=== PATIENT | male | born 1960 | race Caucasian/White ===

== ENCOUNTER 2018-11-18 15:20 | Emergency (ER) | payer OTHER ==
[2018-11-18 15:58] VITALS: BP 137/76
--- NOTE | 2018-11-18 16:29 | UC ---
Hand/Wrist HPI - HPI Summary HPI Summary: 58-year-old male comes in with a chief complaint of a injury to the palm of the left hand at work just prior to arrival. Patient was using a pressure sprayer to clean the floor. When he picked up the pressure [place] did not realize was still pressure behind it fired off water into the palm of his left hand. Initially the pain was quite severe. Pain has decreased quite a bit since that time. He's been having some tingling into the third and fourth fingers. It's also improving. Is full range of motion of the hand. Movement increases the pain. Patient does have patient has a 6 mm laceration on the palm of the left hand. Bleeding was controlled with direct pressure. Patient reports he had a tetanus shot in the last 1-2 years. - History Of Current Complaint Chief Complaint: UCLaceration Stated Complaint: W/C - LEFT HAND INJURY Time Seen by Provider: 11/18/18 15:57 Pain Intensity: 3 - Allergies/Home Medications Allergies/Adverse Reactions: Allergies Allergy/AdvReac Type Severity Reaction Status Date / Time No Known Allergies Allergy Verified 11/18/18 15:58 PMH/Surg Hx/FS Hx/Imm Hx Previously Healthy: Yes - Surgical History Surgical History: None - Family History Known Family History: Positive: Non-Contributory - Social History Alcohol Use: Weekly Substance Use Type: None Smoking Status (MU): Heavy Every Day Tobacco Smoker Review of Systems All Other Systems Reviewed And Are Negative: Yes Constitutional: Positive: Negative Skin: Positive: Other - see hpi Eyes: Positive: Negative ENT: Positive: Negative Respiratory: Positive: Negative Cardiovascular: Positive: Negative Gastrointestinal: Positive: Negative Motor: Positive: Negative Neurovascular: Positive: Negative Musculoskeletal: Positive: Other: - see hpi Neurological: Positive: Numbness Psychological: Positive: Negative Is Patient Immunocompromised?: No Physical Exam Triage Information Reviewed: Yes Appearance: Well-Appearing, No Pain Distress, Well-Nourished Vital Signs: Initial Vital Signs Temp 98.2 F 11/18/18 15:54 Pulse 80 11/18/18 15:54 Resp 16 11/18/18 15:54 BP 137/76 11/18/18 15:54 Pulse Ox 98 11/18/18 15:54 Vital Signs Reviewed: Yes Eye Exam: Normal Eyes: Positive: Conjunctiva Clear Neck exam: Normal Neck: Positive: Supple Respiratory: Positive: No respiratory distress Musculoskeletal: Positive: Strength Intact, ROM Intact Neurological Exam: Normal Neurological: Positive: Alert, Muscle Tone Normal, Other: - Left palm is tender in the palm is not tender on the dorsum. Fingers have full range of motion full -strength. Patient reports some decreased sensation in the palmar surface of the third and fourth fingers. Normal capillary refill. Wrists is full range of motion without any pain. Psychological Exam: Normal Psychological: Positive: Age Appropriate Behavior Skin: Positive: Other - The palm of the left hand has a 6 mm laceration after cleaning there is no bleeding. It's tender around that area. Hand/Wrist Course/Dx - Course Course Of Treatment: Patient Name: MARIETTA KLINE Medical Record#: [id number] Ordering Physician: Kenny Lopes MD Acct.#: [id number] : 1960 Age: 58 Sex: M Location: [facility] Exam Date: 11/18/18 162 ADM Status: REG ER Order Information: HAND - LEFT MINIMUM 3 VIEWS Accession Number: [id number] CPT: 83401 INDICATION: Laceration to palm of LEFT hand. COMPARISON: No relevant prior exams available on the [facility] PACS for comparison. TECHNIQUE: AP, lateral, and oblique views LEFT hand. REPORT AND IMPRESSION: #. Negative for fracture or malalignment. Extensive soft tissue swelling and subcutaneous emphysema at the volar aspect of the hand at the level of the metacarpals and metacarpal phalangeal joints. No conspicuous foreign body evident. <Electronically signed by Herbert Mcpherson MD in OV> 11/18/18 1913 I discussed the x-ray report with the patient. On examination patient has normal capillary refill of the fingers. He reports some tingling primarily in the second third and fourth fingers but that's been improving since the injury. No decreased range of motion. Patient can be on Keflex 500 mg by mouth 4 times a day. Plan is to follow-up with orthopedic hands. I let him know that if anything got worse he should get evaluated again right away. - Differential Dx/Diagnosis Provider Diagnosis: High pressure injury of left hand Discharge - Sign-Out/Discharge Documenting (check all that apply): Patient Departure All imaging exams completed and their final reports reviewed: Yes - Discharge Plan Condition: Stable Disposition: HOME Prescriptions: Cephalexin CAP* [Keflex CAP*] 500 mg PO QID #40 cap Mupirocin 1 applic TOPICAL BID #22 gm Patient Education Materials: Laceration Without Closure (ED) Referrals: [facility] PHYSICIAN REFERRAL [Outside] Sarah Block MD [Medical Doctor] - Additional Instructions: FOLLOW UP WITH THE ORTHOPEDIC HAND SPECIALIST, DR BLOCK, FOR YOUR HIGH PRESSURE LEFT HAND INJURY. GO TO THE EMERGENCY DEPARTMENT IF YOUR CONDITION WORSENS; PAIN, SIGNS OF INFECTION, NUMBNESS, LOSS OF CIRCULATION OR ANY QUESTIONS OR CONCERNS. - Billing Disposition and Condition Condition: STABLE Disposition: Home
== END 2018-11-18 17:13 | disposition home or self-care (01) ==
LOC: UCCORT 15:20
DX: S61.412A Laceration without foreign body of left hand, initial encounter (principal); F17.290 Nicotine dependence, other tobacco product, uncomplicated; X58.XXXA Exposure to other specified factors, initial encounter; Y92.9 Unspecified place or not applicable
CPT/HCPCS: 99202; G0463